=== PATIENT | female | born 1990 | race Caucasian/White ===

== ENCOUNTER → 2017-10-15 15:11 | Outpatient (CLI) | payer MEDICARE, MEDICAID, SELFPAY ==
[2017-10-18 10:43] LABS: FSH 3.4 mIU/mL (.); LH 5.3 mIU/mL (.)
== END ==
PROVIDERS: Visit Provider Obstetrics & Gynecology
DX: E23.6 Other disorders of pituitary gland (principal)
CPT/HCPCS: 36415; 83001; 83002; 84443

== ENCOUNTER → 2019-05-25 13:07 | Outpatient (CLI) | payer MEDICARE, SELFPAY ==
--- NOTE | 2019-05-25 13:24 | US_ITS ---
PROCEDURE: US OB <= 14 WEEKS FETUS CLINICAL INDICATION: COMPARISON: No exams were available for comparison FINDINGS: An intrauterine gestational sac is present with a pole with a crown-rump length of 0.38 cm correlating to gestational age of 6 weeks 1 day. heart tones are present with an FHR of 92 bpm. Yolk sac is noted. There is a 2 cm right corpus luteum cyst IMPRESSION: Live IUP 6 weeks 1 day Estimated due date by Ultrasound is 01/17/2020 Dictated by: Tee Garay MD 05/25/2019 19:47 Electronically signed by Tee Garay MD in [place] 05/25/2019 19:47
[2019-05-25 15:13] LABS: Basophils % 0.4 % (0.1-2.0); Eosinophils # 0.1 K/mm3 (0.0-0.4); Eosinophils % 1.2 % (0.1-12.0); Hematocrit 41.1 % (37.0-47.0); Hemoglobin 13.2 g/dL (12.2-16.2); Lymphocytes # 1.8 K/mm3 (0.7-4.5); Mean Corpuscular HGB Conc 32.2 g/dL (31.8-35.4); Mean Corpuscular Hemoglobin 30.1 pg (27.0-31.2); Mean Corpuscular Volume 93.3 fl (81-99); Mean Platelet Volume 7.3 fl (7.4-10.4); Monocytes # 0.4 K/mm3 (0.1-1.0); Monocytes % 5.3 % (1.7-9.3); Neutrophils # 4.8 K/mm3 (1.8-7.8); Neutrophils % 68.1 % (37.0-80.0); Platelet Count 294 K/mm3 (142-424); Red Blood Count 4.41 M/mm3 (4.20-5.40); Red Cell Distribution Width 12.4 % (11.5-17.5); White Blood Count 7.1 K/mm3 (4.8-10.8)
[2019-05-27 08:17] LABS: HIV Screen 4th Generation wRfx Non Reactive (Non Reactive)
[2019-05-27 11:44] LABS: Hepatitis B Surface Antigen Negative (Negative); Hepatitis C Antibody <0.1 s/co ratio (0.0-0.9); Rapid Plasma Reagin Ab Titer Non Reactive (NonRea<1:1); Rubella Antibodies, IgG 2.54 index (Immune >0.99)
== END ==
PROVIDERS: Visit Provider Obstetrics & Gynecology
DX: Z34.92 Encounter for supervision of normal pregnancy, unspecified, second trimester; Z79.899 Other long term (current) drug therapy
CPT/HCPCS: 36415; 76801; 84443; 84702; 85025; 86592; 86703; 86762; 86850; 87340; 87380; G0432

== ENCOUNTER → 2019-06-18 15:02 | Outpatient (CLI) | payer MEDICARE, SELFPAY ==
--- NOTE | 2019-06-18 15:12 | US_ITS ---
PROCEDURE: US OB TRANSVAGINAL CLINICAL INDICATION: US OB- Pain during /viability COMPARISON: US OB <= 14 WEEKS FETUS from 05/25/2019 FINDINGS: There is an intrauterine gestational sac once again noted.. The sac however is slightly irregular with some specular echoes centrally. A pole is identified measuring 0.57 cm correlating to gestational age of 6 weeks and 3 days. heart tones however are not apparent. Unusual curvilinear echogenicity noted in the gestational sac. Previously the fetus measured 6 weeks and 1 day on 05/25/2019. One would expect greater progression. There is a 1.9 cm right ovarian cyst IMPRESSION: There is an intrauterine gestation with a pole which measures 6 weeks 3 days but no obvious heart tones are demonstrated and the fetus has not adequately progressed compared to 2518 suggesting nonviable . Cannot confirm viability at this time. There are unusual echoes also within the gestational sac. Dictated by: Tee Garay MD 06/20/2019 12:18 Electronically signed by Tee Garay MD in [place] 06/20/2019 12:18
== END ==
PROVIDERS: PCP Family Medicine; Visit Provider Obstetrics & Gynecology
DX: O26.899 Other specified pregnancy related conditions, unspecified trimester (principal); R10.2 Pelvic and perineal pain
CPT/HCPCS: 76817

== ENCOUNTER 2020-08-23 10:38 | Emergency (ER) | payer MEDICARE, SELFPAY ==
[2020-08-23 10:52] VITALS: BP 136/70; PULSE 66; RESP 16; TEMP 37; O2SAT 98; BMI 46.0
--- NOTE | 2020-08-23 10:57 | HMH.EDUTC ---
[facility] [place]ression: Knee contusion Qualifiers: Encounter type: initial encounter Laterality: right Qualified Code(s): S80.01XA - Contusion of right knee, initial encounter Disposition: Home, Self-Care Condition on Discharge: Good Instructions: How to Use Crutches, How To Perform RICE (Rest, Ice, Compress, Elevate) Additional Instructions: *RICE, Rest the extremity, Ice 15-20 minutes 3-4 times daily, Compress- wear the jeremy wrap as discussed as much as possible to help reduce swelling and pain, Elevate the extremity when at rest *Jeremy wrap/Knee immobilizer is for support and help control swelling, use it except in the shower. Be sure that is not to tight but not to loose either *Elevate when resting *Ibuprofen 600-800mg every 6-8 hours as needed for pain an inflammation. If need something more can take Tylenol in between doses of Ibuprofen to help Immediately follow up with your family doctor for new or worsening of symptoms, or no noticeable improvement over the next 3-5 days Crutches to ambulate Call back to the [facility] later today for the official radiology reading of your xray Crutches for ambulation and walking this is to keep weight off your knee Follow up with Orthopedics if warranted Return f needed Follow up with Family Doctor if no improvement or any worsening of symptoms Straight to ER if any life threatening symptoms Referrals: Alberto Flaherty MD [Primary Care Provider] - As needed Damien Joiner MD [Staff Physician] - As needed Time of Disposition: 11:40 Medical Decision Making - Bernardo Inquiry Pt receiving controlled substance: No Bernardo was queried for this patient: No Vital Signs: 08/23/20 10:52 08/23/20 12:04 Temperature 98.6 F 97.9 F Temperature Source Oral Tympanic Pulse Rate 70 Pulse Rate [Right] 66 Respiratory Rate 16 18 Blood Pressure 129/71 Blood Pressure [Right Arm] 136/70 Blood Pressure Mean [Right Arm] 92 Blood Pressure Source Automatic Cuff Blood Pressure Source [Right Arm] Automatic Cuff Blood Pressure Position Sitting Blood Pressure Position [Right Arm] Sitting 02 Sat by Pulse Oximetry 98 Oxygen Delivery Method Room Air - Radiology Data #1 Image(s): Knee Image Reviewed: Yes I reviewed the patient's radiology image Preliminary Findings: No Fracture Seen Medical Decision Narrative: denies [facility] [place] - General Stated complaint: AO [id number] right knee pain,home Time Seen by Provider: 08/23/20 10:57 Mode of Arrival: Wheelchair Source of Information: Patient Limitations: No Limitations Description of Symptoms (Recalled from Triage Doc. by RN): pt states she fell on ice about an hour ago and hit her R knee. she is having sharp pain 8/10 and her knee is stiff. HEENT Symptoms (Recalled from RN notes): No Resp Symptoms (Recalled from RN notes): No Skin Symptoms (Recalled from RN notes): No MS Symptoms (Recalled from RN notes): Yes (R knee pain) Functional Status (Recalled from RN notes): na - History of Present Illness Provider Complaint: Patient states that she slipped on ice about an hour ago and landed on her right knee State that ever since she has been having sharp shooting pains in her right knee area and feels like it is stiff and has pain when she tries to move it Denies any other injury - Related Data Home Medications Medication Instructions Recorded Confirmed vit 119-iron fum 29 1 tab PO DAILY 06/18/19 07/03/19 mg-folic acid 1 mg-docusate 25 mg tablet Labetalol HCl 100 mg PO BID 06/19/19 07/03/19 Allergies Allergy/AdvReac Type Severity Reaction Status Date / Time No Known Allergies Allergy Verified 08/23/20 10:45 - Worker's Comp Is this a Worker's Comp case?: No [facility] History - Hepatitis A Screen Drug use history?: No High risk sexual behaviors?: No History of sexually transmitted infection?: No Currently employed?: No Childcare worker?: No Do you have indoor plumbing?: Yes Do you
--- NOTE | 2020-08-23 11:00 | XR_ITS ---
PROCEDURE: XR KNEE RT 3V CLINICAL INDICATION: fall Posttraumatic pain COMPARISON: CR KNEE3L KNEE-3 VIEWS-LT from 11/08/2013 FINDINGS: No fracture or dislocation. No lytic or blastic change. There is normal mineralization. There are mild osteoarthritic changes involving the medial and lateral compartment. Oval sclerotic density involves the distal femur laterally at the distal diaphyseal region and may be due to a bone island. Other findings:None. IMPRESSION: Mild osteoarthritic change Possible bone island distal femur No acute fracture Dictated by: Tee Garay MD 08/23/2020 12:37 Tee Garay MD in [place] 08/23/2020 12:37
[2020-08-23 12:04] VITALS: BP 129/71; PULSE 70; RESP 18; TEMP 36.6
== END 2020-08-23 12:04 | disposition home or self-care (01) ==
PROVIDERS: Emergency Provider Nurse Practitioner Family; PCP Family Medicine
DX: S80.01XA Contusion of right knee, initial encounter (principal); W00.0XXA Fall on same level due to ice and snow, initial encounter; Y92.018 Other place in single-family (private) house as the place of occurrence of the external cause
CPT/HCPCS: 29505; G0463; 73562; 99202

== ENCOUNTER → 2020-09-02 09:35 | Outpatient (CLI) | payer MEDICARE, SELFPAY ==
--- NOTE | 2020-09-02 09:36 | MR_ITS ---
PROCEDURE: MR KNEE RT WO CON CLINICAL INDICATION: right knee pain; evaluate for meniscal tear Pt fell on ice and c/o anterior knee pain. COMPARISON: CR XR KNEE RT 3V from 08/23/2020 TECHNIQUE: Routine multiplanar multi echo sequences are performed without gadolinium enhancement. FINDINGS: Cruciate ligaments appear intact. The collateral ligaments also appear as does the patellar tendon and quadriceps tendon. There is a large suprapatellar knee joint effusion. Tricompartmental osteoarthritic changes are present. No meniscal tear apparent. There is lateral patellar subluxation. The medial patellofemoral ligament is not well demonstrated and may be partially torn or sprain. There is focal increased T2 signal involving the medial aspect of the patella at the medial patellar femoral ligament insertion. Osteoarthritic changes are present at the patellofemoral joint with thinning of the patellar cartilage and increased T2 signal within the patellar cartilage. There is a small focal area of increased T2 signal involving the lateral aspect of the femur anteriorly which could be due to an area of bone bruise. There is also some increased T2 signal involving the posterior aspect of the subchondral portion of the medial femoral condyle which could be due to an area of osteochondritis. This area measures approximately 1.6 cm. There is a 12 mm area of decreased T1 and decreased T2 signal involving the posterior aspect of the distal femur corresponding to the sclerotic lesion noted on the previous radiograph. IMPRESSION: 1. No evidence cruciate ligament or meniscal tear or collateral ligamentous tear. 2. Suspect partial tear or high-grade sprain of the medial patellofemoral ligament with lateral patellar subluxation. The focal increased T2 signal involving the medial aspect of the patella and the anterior and medial aspect of the femur could be related to bone bruise from prior patellar dislocation. There is moderate lateral patellar subluxation at this time. 3. 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 Dictated by: Tee Garay MD 09/04/2020 10:36 Tee Garay MD in [place] 09/04/2020 10:36
== END ==
PROVIDERS: PCP Family Medicine; Visit Provider Orthopaedic Surgery
DX: M25.561 Pain in right knee (principal)
CPT/HCPCS: 73721

== ENCOUNTER 2020-12-26 16:50 | Emergency (ER) | payer MEDICARE, SELFPAY ==
[2020-12-26 21:00] VITALS: BP 000/00; PULSE 0; RESP 0; TEMP -17.7; TEMP 0
--- NOTE | 2020-12-26 21:02 | PC.NURSE ---
called for pt to be put into a room at 1758. pt was no where to be found. repeated this several times until 2099.
== END 2020-12-26 21:02 | disposition left against medical advice (07) ==
PROVIDERS: Emergency Provider Nurse Practitioner Family; PCP Family Medicine
DX: Z53.21 Procedure and treatment not carried out due to patient leaving prior to being seen by health care provider (principal)

== ENCOUNTER 2021-07-12 21:46 | Emergency (ER) | payer MEDICARE, SELFPAY ==
[2021-07-12 21:46] VITALS: BP 145/91; PULSE 92; RESP 18; TEMP 37.4; O2SAT 98; BMI 46.0
--- NOTE | 2021-07-12 22:25 | XR_ITS ---
PROCEDURE INFORMATION: Exam: XR Chest Exam date and time: 07/12/2021 10:25 PM Age: 30 years old Clinical indication: Cough; Additional info: Cough R/O covid TECHNIQUE: Imaging protocol: XR of the chest. Views: 2 views. COMPARISON: CR CXR1VP XR chest portable 09/10/2018 7:18 PM FINDINGS: Lungs: Unremarkable. No consolidation. Pleural spaces: Unremarkable. No pleural effusion. No pneumothorax. Heart/Mediastinum: Unremarkable. No cardiomegaly. Bones/joints: Unremarkable. IMPRESSION: No acute findings.
[2021-07-12 22:42] LABS: Influenza A, PCR Not Detected (NotDetected); Influenza B, PCR Not Detected (NotDetected)
[2021-07-12 23:18] LABS: Basophils % 0.8 % (0.1-2.0); Eosinophils % 0.9 % (0.1-12.0); Hematocrit 42.9 % (37.0-47.0); Hemoglobin 13.4 g/dL (12.2-16.2); Lymphocytes # 0.4 K/mm3 (0.7-4.5); Lymphocytes % 7.9 % (10-50); Mean Corpuscular HGB Conc 31.1 g/dL (31.8-35.4); Mean Corpuscular Hemoglobin 29.7 pg (27.0-31.2); Mean Corpuscular Volume 95.4 fl (81-99); Mean Platelet Volume 7.8 fl (7.4-10.4); Monocytes # 0.3 K/mm3 (0.1-1.0); Monocytes % 6.4 % (1.7-9.3); Neutrophils % 84.1 % (37.0-80.0); Platelet Count 213 K/mm3 (142-424); Red Cell Distribution Width 12.5 % (11.5-17.5); White Blood Count 4.8 K/mm3 (4.8-10.8)
[2021-07-12 23:20] LABS: Coronavirus 19, PCR Detected (NotDetected)
[2021-07-12 23:21] LABS: Albumin Level 4.4 g/dl (3.5-5.0); Albumin/Globulin Ratio 1.4 (1.1-1.8); Alkaline Phosphatase 65 U/L (38-126); Anion Gap 10.7 mEq/L (5-15); Bilirubin,Total 0.2 mg/dl (0.2-1.3); Blood Urea Nitrogen 10 mg/dl (7-17); Calcium 8.9 mg/dl (8.4-10.2); Carbon Dioxide 27 mmol/L (22.0-30.0); Chloride 100 mmol/L (98-107); Creatinine Clearance Estimated 133 mL/min (50-200); Estimated Glomerular Filt Rate 99 ml/min (>60); GFR (African American) 120 ML/MIN (>60); Globulin 3.1 g/dL (1.3-3.2); Glucose 102 mg/dl (74-100); Potassium 3.7 mmoL/L (3.5-5.1); Sodium 134 mmol/L (136-145); Total Protein,Serum 7.5 g/dl (6.3-8.2)
[2021-07-12 23:22] LABS: Alanine Aminotransferase 20 U/L (12-78); Aspartate Amino Transferase 28 U/L (14-36)
[2021-07-12 23:24] LABS: HCG Qualitative, Serum Negative (Negative)
[2021-07-12 23:26] LABS: C-Reactive Protein 8.1 mg/L (0-4)
--- NOTE | 2021-07-12 23:28 | HMH.EDSOB ---
ED Disposition Clinical Impression: COVID-19 Disposition: Home, Self-Care Condition on Discharge: Good Instructions: DI for COVID-19 (Suspected or Confirmed ) Additional Instructions: fluids and see pcp for follow up Referrals: Robert Magdaleno [Primary Care Provider] - - Critical Care Critical Care Time: No Attestation: On 07/12/21, the high probability of a clinically significant, sudden or life threatening deterioration of the following system(s) required my full and direct attention, intervention and personal management. The time I documented below is in addition to time spent performing reported procedures but includes the following listed in this critical care notation. Medical Decision Making - Medical Records Medical records reviewed: Yes: I reviewed the patient's medical records. - Bernardo Inquiry Pt receiving controlled substance: No Vital Signs: 07/12/21 21:46 Temperature 99.3 F Temperature Source Oral Pulse Rate [Radial] 92 H Respiratory Rate 18 Blood Pressure [Right Arm] 145/91 H Blood Pressure Mean [Right Arm] 109 Blood Pressure Source [Right Arm] Automatic Cuff Blood Pressure Position [Right Arm] Sitting 02 Sat by Pulse Oximetry 98 Oxygen Delivery Method Room Air - Lab Data Lab results reviewed: Yes: I reviewed the patient's lab results. Lab Results 07/12/21 21:52: SARS-CoV-2 (PCR) Detected A, Influenza A Untype (PCR) Not detected, Influenza Type B (PCR) Not detected 07/12/21 23:00: WBC 4.8, RBC 4.50, Hgb 13.4, Hct 42.9, MCV 95.4, MCH 29.7, MCHC 31.1 L, RDW 12.5, Plt Count 213, MPV 7.8, Neut % (Auto) 84.1 H, Lymph % (Auto) 7.9 L, Knox % (Auto) 6.4, Eos % (Auto) 0.9, Baso % (Auto) 0.8, Neut # (Auto) 4.0, Lymph # (Auto) 0.4 L, Knox # (Auto) 0.3, Eos # (Auto) 0.0, Baso # (Auto) 0.0 07/12/21 23:00: Sodium 134 L, Potassium 3.7, Chloride 100, Carbon Dioxide 27, Anion Gap 10.7, BUN 10, Creatinine 0.70, Estimated Creat Clear 133, Estimated GFR 99, Est GFR ( Amer) 120, Glucose 102 H, Calcium 8.9, Total Bilirubin 0.2, AST 28, ALT 20, Alkaline Phosphatase 65, C-Reactive Protein 8.1 H, Total Protein 7.5, Albumin 4.4, Globulin 3.1, Albumin/Globulin Ratio 1.4 07/12/21 23:00: ESR 20 07/12/21 23:00: Serum HCG, Qual Negative 07/12/21 23:00: Procalcitonin 0.039 Result diagrams: 07/12/21 23:00 07/12/21 23:00 Orders (Tests/Meds): ED MEDICATIONS Generic Name Dose Route Start Last Admin Trade Name Freq PRN Reason Stop Dose Admin Sodium Chloride 1,000 mls @ 999 mls/hr 07/12/21 22:30 07/12/21 23:18 Sod Chlor 0.9% 1000ml Bag IV 07/12/21 23:30 999 mls/hr .Q1H1M MARY Administration ORDERS Category Date Time Status XR chest 2V Stat Exams 07/12/21 22:25 Taken - Radiology Data #1 Image(s): Chest Image Reviewed: Yes I reviewed the patient's radiology image Preliminary Findings: Abnormal (nonspecific) Medical Decision Narrative: pt with covid-19 and stable exam Resp/SOB HPI - General Chief Complaint: Upper Respiratory Infection Stated Complaint: FEVER Time Seen by Provider: 07/12/21 22:00 Mode of Arrival: EMS Source of Information: Patient, EMS, Medical Record Limitations: No Limitations Description of Symptoms (Recalled from ER Triage Doc. by RN): Pt arrived via EMS after having flu/cold symptoms that began at 1500 today. Pt denies previous Covid vaccine. Denies Covid exposure. Pt reports, body aches, nausea, sore throat and productive cough with green sputum. - History of Present Illness pt with fever and cough today MD Complaint: shortness of breath, cough Onset (ago): hour(s) Severity: moderate Associated symptoms: sputum production Treatment prior to arrival: none - Related Data Home oxygen amount: none Home Medications Medication Instructions Recorded Confirmed No Known Home Medications 07/12/21 07/12/21 Allergies Allergy/AdvReac Type Severity Reaction Status Date / Time No Known Allergies Allergy Verified 09/14/20 10:41 H
[2021-07-12 23:40] LABS: Procalcitonin 0.039 ng/mL (0.0-2.0)
[2021-07-12 23:41] LABS: Erythrocyte Sedimentation Rate 20 mm/hr (0-20)
[2021-07-13 00:08] VITALS: BP 148/77; PULSE 89; RESP 18; TEMP 37.3; O2SAT 99
== END 2021-07-13 00:19 | disposition home or self-care (01) ==
PROVIDERS: Emergency Provider Emergency Medicine; PCP Pediatrics
DX: U07.1 COVID-19 (principal); J06.9 Acute upper respiratory infection, unspecified; I10 Essential (primary) hypertension
CPT/HCPCS: 71046; 80053; 84145; 84703; 85025; 85651; 86140; 96365; 99283; C9803; U0003; U0005

== ENCOUNTER 2021-09-22 20:11 | Emergency (ER) | payer MEDICARE, SELFPAY ==
[2021-09-22 20:30] VITALS: BP 141/79; PULSE 91; RESP 18; TEMP 37; O2SAT 98; BMI 46.6
[2021-09-22 21:12] LABS: UTC Influenza A Antigen Negative (Negative); UTC Influenza B Antigen Negative (Negative)
[2021-09-22 21:16] VITALS: BP 141/79; PULSE 91; RESP 18; TEMP 37; O2SAT 98
--- NOTE | 2021-09-22 21:19 | HMH.EDUTC ---
[facility] [place] Clinical Impression: Acute bronchitis Qualifiers: Bronchitis organism: unspecified organism Qualified Code(s): J20.9 - Acute bronchitis, unspecified Disposition: Home, Self-Care Condition on Discharge: Good Instructions: Acute Bronchitis, DI for Acute Bronchitis Additional Instructions: Drink plenty of fluids. Take tylenol or ibuprofen for pain or fever. Take the medications as directed. Follow up with your regular doctor. GO TO THE ER FOR ANY WORSENING SYMPTOMS The cough medication (promethazine dm) will make you drowsy, so don't drive or operate heavy machinery after taking it. Prescriptions: Promethazine/Dextromethorphan [Promethazine-Dm Syrup] 5 ml PO Q6HP PRN #240 ml PRN Reason: Cough Transmission Status: Pending to [facility] Amoxicillin/Potassium Clav [Amox-Clav 875-125 mg Tablet] 1 tab PO BID #20 tab Transmission Status: Pending to [facility] Benzonatate [Benzonatate 100mg cap] 100 mg PO TIDP PRN #30 cap PRN Reason: Cough Transmission Status: Pending to [facility] methylPREDNISolone [Medrol] 4 mg PO DIRECTED 6 Days #21 packet Transmission Status: Pending to [facility] Referrals: Alberto Flaherty MD [Primary Care Provider] - Forms: Work/School Release Time of Disposition: 21:23 Medical Decision Making - Medical Records Medical records reviewed: No: I reviewed the patient's medical records. - Bernardo Inquiry Pt receiving controlled substance: No Vital Signs: 09/22/21 20:30 09/22/21 21:16 Temperature 98.6 F 98.6 F Temperature Source Oral Pulse Rate 91 H Pulse Rate [Right Brachial] 91 H Respiratory Rate 18 18 Blood Pressure 141/79 H Blood Pressure [Right Arm] 141/79 H Blood Pressure Mean [Right Arm] 99 Blood Pressure Source [Right Arm] Automatic Cuff Blood Pressure Position [Right Arm] Sitting 02 Sat by Pulse Oximetry 98 Oxygen Delivery Method Room Air - Lab Data Lab results reviewed: Yes: I reviewed the patient's lab results. Lab Results 09/22/21 21:11: Influenza Type A Ag Negative, Influenza Type B Ag Negative Orders (Tests/Meds): ED MEDICATIONS Discontinued Medications Generic Name Dose Route Start Last Admin Trade Name Freq PRN Reason Stop Dose Admin Methylprednisolone Sodium Succinate 125 mg 09/22/21 21:11 09/22/21 21:14 Methylprednisolone Sod Succ 125mg Vial IM 09/22/21 21:12 125 mg ONCE ONE Administration [facility] [place]PI - General Stated complaint: cough Time Seen by Provider: 09/22/21 21:19 Mode of Arrival: Ambulatory Source of Information: Patient Limitations: No Limitations Description of Symptoms (Recalled from Triage Doc. by RN): PATIENT C/O COUGH, RUNNY NOSE, CONGESTION, SINUS PRESSURE, HEADACHE, AND EAR ACHE X 3 DAYS HEENT Symptoms (Recalled from RN notes): Yes Resp Symptoms (Recalled from RN notes): Yes Skin Symptoms (Recalled from RN notes): No MS Symptoms (Recalled from RN notes): No Functional Status (Recalled from RN notes): WNL - History of Present Illness Provider Complaint: She states that she started feeling bad 3 days ago. She has been having a nonproductive cough, chest congestion, sore throat and sinus congestion. - Related Data Previous Rx's Medication Instructions Recorded Amoxicillin/Potassium Clav 1 tab PO BID #20 tab 09/22/21 [Amox-Clav 875-125 mg Tablet] Benzonatate [Benzonatate 100mg 100 mg PO TIDP PRN #30 cap 09/22/21 cap] Promethazine/Dextromethorphan 5 ml PO Q6HP PRN #240 ml 09/22/21 [Promethazine-Dm Syrup] methylPREDNISolone [Medrol] 4 mg PO DIRECTED 6 Days #21 09/22/21 packet Allergies Allergy/AdvReac Type Severity Reaction Status Date / Time No Known Allergies Allergy Verified 09/14/20 10:41 - Worker's Comp Is this a Worker's Comp case?: No [facility] History - Hepatitis A Screen Drug use history?: No High risk sexual behaviors?: No History of sexually transmitted
== END 2021-09-22 21:29 | disposition home or self-care (01) ==
PROVIDERS: Emergency Provider Nurse Practitioner Family; PCP Family Medicine
DX: J20.9 Acute bronchitis, unspecified (principal); I10 Essential (primary) hypertension
CPT/HCPCS: 87804; 96372; 99213; G0463

== ENCOUNTER 2023-06-25 17:51 | Emergency (ER) | payer MEDICARE, SELFPAY ==
[2023-06-25] VITALS (9 sets, daily range): BP systolic 150–187; BP diastolic 103–121; PULSE 69–88; RESP 14–20; TEMP 36.7–36.8; O2SAT 96–98; BMI 48.8
--- NOTE | 2023-06-25 17:54 | XR_ITS ---
PROCEDURE INFORMATION: Exam: XR Chest Exam date and time: 06/25/2023 5:57 PM Age: 32 years old Clinical indication: Sternal or substernal pain; Additional info: Cp TECHNIQUE: Imaging protocol: Radiologic exam of the chest. Views: 2 views. COMPARISON: No relevant prior studies available. FINDINGS: Lungs: Normal. Pleural spaces: Normal No pleural effusion. No pneumothorax. Heart/Mediastinum: Normal. No cardiomegaly. Bones/joints: Unremarkable. IMPRESSION: No acute findings.
--- NOTE | 2023-06-25 17:54 | ECG_ITS ---
APPROVED REPORT Exam: Resting ECG HR:82 bpm ECG Measurements Heart Rate 82 AXES CA 155 P 50 QRSd 85 QRS 19 QT 343 T 20 QTc 382 Conclusion SINUS RHYTHM NORMAL ECG UNCONFIRMED REPORT Electronically signed by : Kee Petty MD 06/26/2023 09:00:36
[2023-06-25 18:25] LABS: Basophils % 0.6 % (0.1-2.0); Chloride 107 mmol/L (98-107); Eosinophils # 0.1 K/mm3 (0.0-0.4); Eosinophils % 1.2 % (0.1-12.0); Hematocrit 42.6 % (37.0-47.0); Hemoglobin 14.1 g/dL (12.2-16.2); Lymphocytes # 2.5 K/mm3 (0.7-4.5); Lymphocytes % 34.9 % (10-50); Mean Corpuscular HGB Conc 33.1 g/dL (31.8-35.4); Mean Corpuscular Hemoglobin 30.3 pg (27.0-31.2); Mean Corpuscular Volume 91.8 fl (81-99); Mean Platelet Volume 7.7 fl (7.4-10.4); Monocytes # 0.4 K/mm3 (0.1-1.0); Monocytes % 4.9 % (1.7-9.3); Neutrophils # 4.1 K/mm3 (1.8-7.8); Neutrophils % 58.3 % (37.0-80.0); Platelet Count 238 K/mm3 (142-424); Red Blood Count 4.64 M/mm3 (4.20-5.40); Red Cell Distribution Width 12.7 % (11.5-17.5); Sodium 142 mmol/L (136-145)
[2023-06-25 18:27] LABS: Lipase 119 U/L (23-300)
[2023-06-25 18:28] LABS: Alanine Aminotransferase 44 U/L (12-78); Albumin Level 4.7 g/dl (3.5-5.0); Albumin/Globulin Ratio 1.3 (1.1-1.8); Alkaline Phosphatase 70 U/L (38-126); Aspartate Amino Transferase 43 U/L (14-36); Bilirubin,Total 0.5 mg/dl (0.2-1.3); Blood Urea Nitrogen 13 mg/dl (7-17); Carbon Dioxide 25 mmol/L (22.0-30.0); Creatinine Clearance Estimated 101 mL/min (50-200); Estimated Glomerular Filt Rate 73 ml/min (>60); GFR (African American) 88 ML/MIN (>60); Globulin 3.6 g/dL (1.3-3.2); Total Protein,Serum 8.3 g/dl (6.3-8.2)
[2023-06-25 18:29] LABS: Calcium 8.9 mg/dl (8.4-10.2); Glucose 89 mg/dl (74-100)
[2023-06-25 18:45] LABS: Troponin I < 0.01 ng/ml (0.00-0.034)
[2023-06-25 18:52] LABS: HCG Qualitative, Serum Negative (Negative)
--- NOTE | 2023-06-25 18:59 | PC.NURSE ---
Rounded on pt. No needs voiced. Call light remains within reach
--- NOTE | 2023-06-25 18:59 | HMH.EDCP ---
Discharge Plan Disposition Patient Disposition: Home, Self-Care Condition: Good Prescriptions Prescriptions: New pantoprazole 40 mg tablet,delayed release (DR/EC) 40 mg PO DAILY Qty: 30 0RF No Action promethazine-DM 120 ML syrup 5 ml PO Q6HP PRN (Reason: Cough) Qty: 240 0RF benzonatate 100 MG capsule 100 mg PO TIDP PRN (Reason: Cough) Qty: 30 0RF methylprednisolone 4 MG tablets,dose pack 4 mg PO DIRECTED 6 Days Qty: 21 0RF amoxicillin-pot clavulanate 1 EACH tablet 1 tab PO BID Qty: 20 0RF Referrals Follow up/Referrals: Provider,Referral, [Primary Care Provider] - See instructions Activity Restrictions/Add. Instructions Additional Instructions/Restrictions: You were evaluated in the emergency department today. Please follow-up with your primary care provider over the next 48 hours for recheck of your blood pressure. 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 Follow-up with your primary care provider over the next 3 days. Return to the emergency department for any new or worsening symptoms. Clinical Impressions Clinical Impression: Chest pain, Gastroesophageal reflux disease, High blood pressure Instructions Patient Instructions: DI for Gastroesophageal Reflux Disease (GERD), DI for High Blood Pressure, DI for Atypical Chest Pain Discharge ED Provider: Eneida Callaway HPI General Chief Complaint: Chest Pain Stated Complaint: CP Time Seen by Provider: 06/25/23 17:55 Mode of Arrival: Family Vehicle Source of Information: Patient Limitations: No Limitations Description of Symptoms (Recalled from ER Triage Doc. by RN): Pt c/o midsteral burning and sensations intermittently for 3-4 months. States she has been dx with GERD and used to take medicine for it, but no longer does. 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 Denies any fever or chest congestion. History of Present Illness HPI narrative: This patient is a 32-year-old female with a history of obesity presenting to the emergency department for evaluation with concern for burning and chest pain that has been going on intermittently for 3 to 4 months. She states that it gets worse when she drinks. It is mostly on the left side of her chest. She notes a history of acid reflux and states that she used to take medicine for it, but she no longer does. She states she does not like to take medicine. She denies any associated shortness of breath, but does note occasional nausea. No abdominal pain or changes in bowel movements noted. Related Data Previous Rx's Medication Instructions Recorded amoxicillin 875 mg-potassium 1 tab PO BID #20 tabs 09/22/21 clavulanate 125 mg tablet benzonatate 100 mg capsule 100 mg PO TIDP PRN Cough #30 caps 09/22/21 methylprednisolone 4 mg tablets in 4 mg PO DIRECTED 6 days #21 09/22/21 a dose pack packets promethazine-DM 6.25 mg-15 mg/5 mL 5 ml PO Q6HP PRN Cough #240 mL 09/22/21 oral syrup pantoprazole 40 mg tablet,delayed 40 mg PO DAILY #30 tabs 06/25/23 release Allergies Allergy/AdvReac Type Severity Reaction Status Date / Time No Known Allergies Allergy Verified 09/14/20 10:41 [facility] Disclaimer: The information contained in this section may have been updated after the patient was seen, as this information can be updated by other users. Social History Smoking Status: Never smoker alcohol intake: never substance use type: denies use current occupational status: other Travel in the last 8 weeks: None household members: other housing: house caffeine: No ROS Obtained: Yes All systems reviewed & no additional complaints except as documented Physical Exam General General appearance: alert, in no apparent distress and obese Head Head exam: atraumatic and normocephalic Eye Eye exam: Present normal appearance, PERRL and EOMI ENT ENT exam: Present normal exam, no
--- NOTE | 2023-06-25 19:45 | PC.NURSE ---
rounded on pt., no needs at this time visitor at bedside call light within reach
--- NOTE | 2023-06-25 21:03 | PC.NURSE ---
2nd trop drawn by Mohsen Bernstein RN
[2023-06-25 21:34] LABS: Troponin I < 0.01 ng/ml (0.00-0.034)
--- NOTE | 2023-06-25 21:47 | PC.NURSE ---
aware of DC BP
== END 2023-06-25 21:48 | disposition home or self-care (01) ==
PROVIDERS: Emergency Provider Emergency Medicine
DX: R07.9 Chest pain, unspecified (principal); K21.9 Gastro-esophageal reflux disease without esophagitis
CPT/HCPCS: 71046; 80053; 83690; 84484; 84703; 85025; 93005; 99285

== ENCOUNTER 2023-08-22 16:37 | Emergency (ER) | payer MEDICARE, SELFPAY ==
[2023-08-22 17:35] VITALS: BP 147/92; PULSE 110; RESP 21; TEMP 37.1; O2SAT 100; BMI 62.1
--- NOTE | 2023-08-22 17:49 | EXP.UTC ---
Discharge Plan Disposition Patient Disposition: Home, Self-Care Condition: Good Prescriptions Prescriptions: No Action pantoprazole 40 mg tablet,delayed release (DR/EC) 40 mg PO DAILY Qty: 30 0RF Referrals Follow up/Referrals: Lora Joseph MD [Primary Care Provider] - See instructions Activity Restrictions/Add. Instructions Additional Instructions/Restrictions: *Monitor Temp, Over the counter Motrin or Tylenol as directed/as needed Tylenol every 4 hours and Motrin every 6 hours (as long as your family doctor has told you that you can take it) for fever or pain. and straight to ER if unable to lower temp less than 101.0 after medication given *Warm salt water gargles may help to soothe the throat *Throat Lozenges? *Warm fluids like tea with honey may help to soothe the throat? *Sleep elevated *Humidifier/Vaporizer Your throat swab was sent for culture. Those results are typically sent to your primary care. Be sure to follow up in 2-3 days with your family doctor/primary care physician if no improvement so they can review those result and treat if necessary. If you don?t have a primary care doctor, I recommend you get one but in the mean time, you will have to return to a walk in clinic Follow up IMMEDIATELY for new or worsening symptoms or no Noticeable improvement over the next 48-72 hours. 911 for difficulty breathing or swallowing You were tested for today for Upper Respiratory Panel with COVID19 your test result should be back in the next 24hours, you may check your results on the [facility] if your COVID or Influenza is positive on there your must Quarantine for 5 days Clinical Impressions Clinical Impression: Viral syndrome Stand Alone Forms Stand Alone Forms: Work/School Release Instructions Patient Instructions: DI for Viral Syndrome, DI for Fever (Symptom) -- Adult Discharge ED Provider: Chrissy Paige [facility] [place] HPI General Stated complaint: SOA, del Mode of Arrival: Ambulatory Source of Information: Patient Limitations: No Limitations Time Seen by Provider: 08/22/23 17:49 Description of Symptoms (Recalled from Triage Doc. by RN): PATIENT C/O CONGESTION, BODY ACHES, COUGH, AND SORE THROAT HEENT Symptoms (Recalled from RN notes): Yes Resp Symptoms (Recalled from RN notes): Yes Skin Symptoms (Recalled from RN notes): No MS Symptoms (Recalled from RN notes): No Functional Status (Recalled from RN notes): WNL History of Present Illness Provider Complaint: Patient states that she started feeling ill last night States that she has been having body aches, chills, fever, sore throat, congestion and at times feels like she can cough mucous up into her throat States today she has continued to feel bad and achy all over unsure about sick contacts and she feels like the mucous is thick Related Data Previous Rx's Medication Instructions Recorded pantoprazole 40 mg tablet,delayed 40 mg PO DAILY #30 tabs 06/25/23 release Allergies Allergy/AdvReac Type Severity Reaction Status Date / Time No Known Allergies Allergy Verified 09/14/20 10:41 Worker's Comp Is this a Worker's Comp case?: [facility]: The information contained in this section may have been updated after the patient was seen, as this information can be updated by other users. Social History Smoking Status: Never smoker alcohol intake: never substance use type: denies use current occupational status: other Travel in the last 8 weeks: None household members: other housing: house caffeine: No ROS Obtained: Yes All systems reviewed & no additional complaints except as documented and Yes Systems reviewed as appropriate & no additional complaints except as documented Constitutional Constitutional: Reports system reviewed and no additional complaints, except as documented, Reports as per HPI, Reports body ache, Reports chills and Reports headache(s) ENT Ears, Nose, Mouth, and Throat: Reports system reviewed and no additional complaints, except as documented, Reports as per HPI, Reports headache(s), Reports nasal congestion, Reports sinus pressure and Reports sore throat Cardiovascular Cardiovascular: Reports system reviewed and no additional complaints, except as documented and Reports as per HPI Respiratory Respiratory: Reports system reviewed and no additional complaints, except as documented, Reports as per HPI, Reports shortness of breath (at times when she coughs up mucous into her throat), Reports chest congestion and Reports cough Neurologic Neurologic: Reports headache(s) Physical Exam General General appearance: alert and in no apparent distress ENT ENT exam: Present mucous membranes moist Expanded ENT Exam Nose exam: Present sinus tenderness Respiratory Respiratory exam: Present normal lung sounds bilaterally; Absent respiratory distress or wheezes Cardiovascular Cardiovascular exam: Present regular rate, normal rhythm and normal heart sounds Abdominal Exam Abdominal exam: Present soft and normal bowel sounds; Absent distention or tenderness Neurological Exam Neurological exam: Present alert, oriented X3 and normal gait Medical Decision Making Bernardo Inquiry Pt receiving controlled substance: No Bernardo was queried for this patient: No Vital Signs: 08/22/23 17:35 Temperature 98.8 F Temperature Source Oral Pulse Rate [Left Brachial] 110 H Respiratory Rate 21 Blood Pressure [Left Arm] 147/92 H Blood Pressure Mean [Left Arm] 110 Blood Pressure Source [Left Arm] Automatic Cuff Blood Pressure Position [Left Arm] Sitting 02 Sat by Pulse Oximetry 100 Oxygen Delivery Method Room Air Lab Data Lab results reviewed: Yes I reviewed the patient's lab results.
[2023-08-22 17:59] LABS: UTC Influenza A Antigen Negative (Negative); UTC Strep Screen (Rapid) Negative (Negative)
[2023-08-22 18:00] LABS: UTC Influenza B Antigen Negative (Negative)
[2023-08-22 18:20] VITALS: BP 147/92; PULSE 110; RESP 21; TEMP 37.1; O2SAT 100
[2023-08-22 18:28] LABS: Adenovirus,PCR Not Detected (NotDetected); Coronavirus 19, PCR Not Detected (NotDetected); Coronavirus 229E Not Detected (NotDetected); Coronavirus NL63 Not Detected (NotDetected); Coronavirus OC43 Not Detected (NotDetected); Coronovirus HKU1,PCR Not Detected (NotDetected); Human Metapneumovirus Not Detected (NotDetected); Influenza A, PCR Not Detected (NotDetected); Influenza AH1, 2009 Not Detected (NotDetected); Influenza AH1, PCR Not Detected (NotDetected); Influenza AH3,PCR Not Detected (NotDetected); Influenza B, PCR Not Detected (NotDetected); Parainfluenza 1, PCR Not Detected (NotDetected); Parainfluenza 2, PCR Not Detected (NotDetected); Parainfluenza 3, PCR Not Detected (NotDetected); Parainfluenza 4, PCR Not Detected (NotDetected); Respiratory Syncytial Virus Not Detected (NotDetected)
[2023-08-22 21:44] LABS: Rhinovirus/Enterovirus Detected (NotDetected)
== END 2023-08-22 18:25 | disposition home or self-care (01) ==
PROVIDERS: Emergency Provider Nurse Practitioner; PCP Family Medicine
DX: R05.9 Cough, unspecified (principal); B34.1 Enterovirus infection, unspecified; R09.81 Nasal congestion; R50.9 Fever, unspecified; R07.0 Pain in throat
CPT/HCPCS: 87632; 87635; 87804; 87880; 99212; 99213; G0463